=== PATIENT | male | born 1945 | race Asian ===

== ENCOUNTER 2020-03-27 14:35 | Emergency (ER) | payer MEDICARE ==
[~2020-03-27] VITALS: Ht 165.1 cm; Wt 77.5 kg
[2020-03-27 14:43] VITALS: BP 138/80
== END 2020-03-27 15:06 | disposition left against medical advice (07) ==
LOC: EMS 14:35
DX: Z20.828 Contact with and (suspected) exposure to other viral communicable diseases (principal); Z53.21 Procedure and treatment not carried out due to patient leaving prior to being seen by health care provider